=== PATIENT | male | born 1995 | race Hispanic/Latino ===

== ENCOUNTER 2018-10-26 13:00 | Emergency (ER) | payer BC, OTHER ==
[2018-10-26 13:23] VITALS: BP 150/100; PULSE 90; RESP 18; TEMP 97.6; O2SAT 99
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
== END 2018-10-26 14:58 | disposition home or self-care (01) ==
LOC: C.ER 13:00
DX: F41.9 Anxiety disorder, unspecified (principal)